=== PATIENT | female | born 1995 | race Caucasian/White ===

== ENCOUNTER 2019-01-13 15:09 | Inpatient (IN) | payer MEDICAID ==
[~2019-01-13] VITALS: Ht 162.6 cm; Wt 62.6 kg
[2019-01-13 17:48] LABS: AMPHET/METH SCREEN,URINE POSITIVE (NEGATIVE); BARBITURATE SCREEN, URINE NEGATIVE (NEGATIVE); BENZODIAZEPINES SCREEN,URINE NEGATIVE (NEGATIVE); CANNABINOID SCREEN,URINE NEGATIVE (NEGATIVE); COCAINE SCREEN,URINE NEGATIVE (NEGATIVE); METHADONE SCREEN, URINE NEGATIVE (NEGATIVE); OPIATE SCREEN,URINE POSITIVE (NEGATIVE)
[2019-01-13 17:49] LABS: PHENCYCLIDINE SCREEN,URINE NEGATIVE (NEGATIVE)
[2019-01-13 18:14] LABS: BASOPHILS % (AUTO) 0.3 % (0.0-2.0); EOSINOPHILS % (AUTO) 1.9 % (1.0-6.0); HEMATOCRIT 35.7 % (36-46); HEMOGLOBIN 12.1 g/dL (12.0-16.0); LYMPHOCYTES # (AUTO) 1.9 K/uL (1.0-4.8); LYMPHOCYTES % (AUTO) 39.2 % (22.0-44.0); MEAN CORPUSCULAR HEMOGLOBIN 28.6 pg (26.0-34.0); MEAN CORPUSCULAR HGB CONC 33.9 G/dL (31.0-37.0); MEAN CORPUSCULAR VOLUME 84 fL (80-100); MONOCYTES # (AUTO) 0.6 K/uL (0.1-1.0); MONOCYTES % (AUTO) 11.6 % (2.0-9.0); NEUTROPHILS # (AUTO) 2.3 K/uL (1.8-7.7); PLATELET COUNT (AUTO) 258 K/uL (150-450); RED BLOOD CELL COUNT(AUTO) 4.23 MIL/uL (4.00-5.20); RED CELL DISTRIBUTION WIDTH 13.9 % (11.5-14.5)
[2019-01-13 18:23] LABS: ANION GAP 5 mmol/L (8-16); CARBON DIOXIDE 30 mmol/L (22-29); CHLORIDE 98 mmol/L (98-107); CREATININE 0.75 mg/dL (0.60-1.30); GLOMERULAR FILTR. RATE CALC > 60 mL/min (>60); GLUCOSE,RANDOM 109 mg/dL (70-110); POTASSIUM 3.8 mmol/L (3.5-5.1); SODIUM SERUM 133 mmol/L (136-145); UREA NITROGEN, BLOOD 18 mg/dL (7-18)
[2019-01-13 18:35] LABS: ALANINE AMINOTRANSFERASE 33 U/L (12-78); ALBUMIN 3.8 g/dL (3.4-5.0); ALKALINE PHOSPHATASE 97 U/L (46-116); ASPARTATE AMINOTRANSFERASE 49 U/L (15-37); BILIRUBIN,TOTAL 0.5 mg/dL (0.1-1.0); HCG,QUANTITATIVE < 1 mIU/mL (0-6); TOTAL PROTEIN, SERUM 7.6 g/dL (6.4-8.2)
[2019-01-13 20:29] VITALS: BP 121/63
[2019-01-13 20:57] LABS: APPEARANCE,URINE CLOUDY (CLEAR); BILIRUBIN,URINE NEGATIVE (NEGATIVE); GLUCOSE, URINE (UA) NEGATIVE (NEGATIVE); KETONES,URINE 40 mg/dL (NEGATIVE); LEUKOCYTE ESTERASE ,URINE NEGATIVE (NEGATIVE); NITRATE,URINE NEGATIVE (NEGATIVE); OCCULT BLOOD,URINE NEGATIVE (NEGATIVE); PROTEIN,URINE NEGATIVE (NEGATIVE); UROBILINOGEN,URINE 0.2 mg/dL (<=1.0)
[2019-01-13] MEDS ORDERED: ACETAMINOPHEN 325 MG TABLET PO PRN (21:15)
[2019-01-13] MEDS ORDERED: GuaiFENesin/D-METHORPHAN [SUGAR-FREE] 200-20MG/10 ML SYRUP UDCUP PO PRN (21:15)
[2019-01-13] MEDS ORDERED: ONDANSETRON HCL 4 MG TABLET PO PRN (21:15)
[2019-01-13] MEDS ORDERED: LOPERAMIDE HCL 2 MG CAPSULE PO PRN (21:15)
[2019-01-13] MEDS ORDERED: NICOTINE 14 MG/24 HOUR PATCH TD PRN (21:15)
[2019-01-13] MEDS ORDERED: ALBUTEROL SULFATE HFA 90 MCG/PUFF 8 GM INHALER IH PRN (21:15)
[2019-01-13] MEDS ORDERED: MAG HYDROX/AL HYDROX/SIMETH ES 30 ML SUSPENSION UDCUP PO PRN (21:15)
[2019-01-13] MEDS ORDERED: CloNIDine HCL 0.1 MG TABLET PO PRN (21:15)
[2019-01-13] MEDS ORDERED: PETROLATUM,WHITE 28 GM JELLY TP PRN (21:15)
[2019-01-13] MEDS ORDERED: MAGNESIUM HYDROXIDE SUSPENSION 30 ML UDCUP PO PRN (21:15)
[2019-01-13] MEDS ORDERED: IBUPROFEN 400 MG TABLET PO PRN (21:15)
[2019-01-13] MEDS ORDERED: DOCUSATE SODIUM 100 MG CAPSULE PO PRN (21:15)
[2019-01-14 08:00] VITALS: BP 126/81
[2019-01-14] MEDS: LORazepam 2 MG TABLET PO PRN (11:46)
[2019-01-14] MEDS ORDERED: PALIPERIDONE PALMITATE 156 MG/ML SYRINGE IM ONE (12:15)
[2019-01-14] MEDS: ESCITALOPRAM OXALATE 10 MG TABLET PO SCH (13:53)
[2019-01-14 16:12] VITALS: BP 127/76
[2019-01-15 01:55] VITALS: BP 120/73
[2019-01-15] MEDS: LORazepam 2 MG TABLET PO PRN ×4 (01:55→17:33)
[2019-01-15] MEDS: ESCITALOPRAM OXALATE 10 MG TABLET PO SCH (07:52)
[2019-01-15 09:50] VITALS: BP 124/93
[2019-01-15 17:00] VITALS: BP 102/69
[2019-01-15] MEDS: ZOLPIDEM TARTRATE 10 MG TABLET PO PRN (20:10)
[2019-01-16] MEDS: LORazepam 2 MG TABLET PO PRN ×4 (07:52→20:20)
[2019-01-16 08:56] VITALS: BP 146/89
[2019-01-16] MEDS: QUEtiapine FUMARATE 100 MG TABLET PO PRN (09:42)
[2019-01-16] MEDS: ESCITALOPRAM OXALATE 10 MG TABLET PO SCH (09:42)
[2019-01-16 17:11] VITALS: BP 145/86
[2019-01-16] MEDS: ZOLPIDEM TARTRATE 10 MG TABLET PO PRN (21:06)
[2019-01-17] MEDS: ESCITALOPRAM OXALATE 10 MG TABLET PO SCH (08:57)
[2019-01-17] MEDS: LORazepam 2 MG TABLET PO PRN (08:58)
[2019-01-17 09:41] VITALS: BP 110/84
[2019-01-17] MEDS: GABAPENTIN 100 MG CAPSULE PO SCH ×3 (10:14→20:31)
[2019-01-17] MEDS: QUEtiapine FUMARATE 100 MG TABLET PO PRN (18:00)
[2019-01-18 03:50] VITALS: BP 123/86
[2019-01-18 08:57] VITALS: BP 126/84
[2019-01-18] MEDS: GABAPENTIN 100 MG CAPSULE PO SCH ×3 (08:58→20:13)
[2019-01-18] MEDS: ESCITALOPRAM OXALATE 10 MG TABLET PO SCH (08:58)
[2019-01-18] MEDS: QUEtiapine FUMARATE 100 MG TABLET PO PRN (12:09)
[2019-01-18] MEDS: ZOLPIDEM TARTRATE 10 MG TABLET PO PRN (20:13)
[2019-01-18 20:23] VITALS: BP 131/83
[2019-01-19 00:21] VITALS: BP 128/70
[2019-01-19] MEDS: QUEtiapine FUMARATE 100 MG TABLET PO PRN (00:30)
[2019-01-19] MEDS: LORazepam 2 MG TABLET PO PRN ×2 (01:21→15:04)
[2019-01-19] MEDS: ESCITALOPRAM OXALATE 10 MG TABLET PO SCH (09:40)
[2019-01-19] MEDS: GABAPENTIN 100 MG CAPSULE PO SCH ×3 (09:40→20:11)
[2019-01-19 13:25] VITALS: BP 136/78
[2019-01-19 16:00] VITALS: BP 125/79
[2019-01-19] MEDS: ZOLPIDEM TARTRATE 10 MG TABLET PO PRN (20:11)
[2019-01-20 03:08] VITALS: BP 132/82
[2019-01-20] MEDS: LORazepam 2 MG TABLET PO PRN (03:12)
[2019-01-20] MEDS: QUEtiapine FUMARATE 100 MG TABLET PO PRN (04:15)
[2019-01-20 08:00] VITALS: BP 144/75
[2019-01-20] MEDS: ESCITALOPRAM OXALATE 10 MG TABLET PO SCH (08:55)
[2019-01-20] MEDS: GABAPENTIN 100 MG CAPSULE PO SCH (08:55)
[2019-01-20] MEDS ORDERED: GABA-529 PO (10:01)
[2019-01-20] MEDS ORDERED: PALI234D IM (10:01)
[2019-01-20] MEDS ORDERED: ESCI10TA54 PO (10:01)
[2019-02-11] MEDS ORDERED: PALIPERIDONE PALMITATE 234 MG/1.5 ML SYRINGE IM SCH (09:00)
== END 2019-01-20 14:00 | disposition home or self-care (01) | DRG 750 ==
LOC: EMS 15:13 → 3EI 20:32
DX: F25.1 Schizoaffective disorder, depressive type (principal); E87.1 Hypo-osmolality and hyponatremia; R45.851 Suicidal ideations; F11.10 Opioid abuse, uncomplicated; F43.12 Post-traumatic stress disorder, chronic; F15.10 Other stimulant abuse, uncomplicated; F17.210 Nicotine dependence, cigarettes, uncomplicated; B19.20 Unspecified viral hepatitis C without hepatic coma; R74.0 Nonspecific elevation of levels of transaminase and lactic acid dehydrogenase [LDH]; F25.0 Schizoaffective disorder, bipolar type; T40.1X1A Poisoning by heroin, accidental (unintentional), initial encounter; T40.602A Poisoning by unspecified narcotics, intentional self-harm, initial encounter; Y92.89 Other specified places as the place of occurrence of the external cause; Z79.899 Other long term (current) drug therapy; Z91.5 Personal history of self-harm; Z59.0 Homelessness; Z71.51 Drug abuse counseling and surveillance of drug abuser
CPT/HCPCS: 87081; G0480